=== PATIENT | female | born 1955 | race Caucasian/White ===

== ENCOUNTER 2018-02-16 10:04 | Emergency (ER) | payer OTHER ==
[2018-02-16] MEDS: HYDROCODONE/APAP (10/325) TAB PO (10:23)
[2018-02-16] MEDS ORDERED: ONDANSETRON 4 MG INJ (10:38)
[2018-02-16] MEDS: ONDANSETRON 4 MG INJ IV ×2 (10:41→16:01)
[2018-02-16] MEDS: morphine 4 MG/ML VIAL IV ×2 (10:41→16:01)
[2018-02-16 10:56] LABS: ADD MAN DIFF? NO
[2018-02-16 10:58] LABS: WHITE BLOOD COUNT 6.5 10^3/ul (4.8-10.8)
[2018-02-16 10:58] LABS: BASOPHIL # 0.1 10^3/ul (0.0-0.1); BASOPHILS % 1.1 % (0.0-2.0); EOSINOPHILS # 0.8 10^3/ul (0.0-0.5); EOSINOPHILS % 11.5 % (0.0-7.0); HEMATOCRIT 24.5 % (37.0-47.0); HEMOGLOBIN 8.1 g/dl (12.0-16.0); LYMPHOCYTES # 1.8 10^3/ul (0.8-2.9); LYMPHOCYTES % 27.9 % (15.0-51.0); MEAN CORPUSCULAR HEMOGLOBIN 30.1 pg (29.0-33.0); MEAN CORPUSCULAR HGB CONC 33.1 g/dl (32.0-37.0); MEAN CORPUSCULAR VOLUME 91.1 fl (82.0-101.0); MONOCYTE # 0.4 10^3/ul (0.3-0.9); MONOCYTES % 5.4 % (0.0-11.0); NEUTROPHIL # 3.5 10^3/ul (1.6-7.5); NEUTROPHILS % 53.5 % (39.0-77.0); PLATELET COUNT 164 10^3/UL (140-415); RED BLOOD COUNT 2.69 10^6/ul (4.20-5.40); RED CELL DISTRIBUTION WIDTH 13.3 % (11.5-14.5)
[2018-02-16] MEDS: HYDROmorphONE 0.5 MG/0.5 ML SYG IV (11:46)
[2018-02-16 11:47] LABS: ANION GAP 14 (8-16); BLOOD UREA NITROGEN 37 mg/dl (7-20); CALCIUM 8.8 mg/dl (8.4-10.2); CARBON DIOXIDE 19 mmol/L (21-31); CHLORIDE 111 mmol/L (97-110); CREATININE 2.46 mg/dl (0.44-1.00); GLUCOSE 169 mg/dl (70-220); POTASSIUM 4.6 mmol/L (3.5-5.1); SODIUM 139 mmol/L (135-144)
[2018-02-16 12:22] LABS: ADD UMIC YES; UR AMORPHOUS CRYSTAL FEW /HPF (NONE SEEN); UR ASCORBIC ACID NEGATIVE (NEGATIVE); UR BACTERIA MODERATE /HPF (NONE SEEN); UR BILIRUBIN (Dip) NEGATIVE (NEGATIVE); UR BLOOD (Dip) NEGATIVE (NEGATIVE); UR CLARITY SLIGHTLY CLOUDY (CLEAR); UR COLOR YELLOW (YELLOW); UR GLUCOSE (Dip) 1+ mg/dL (NEGATIVE); UR KETONES (Dip) NEGATIVE (NEGATIVE); UR LEUKOCYTE ESTERASE (Dip) NEGATIVE Leu/ul (NEGATIVE); UR NITRITE (Dip) NEGATIVE (NEGATIVE); UR RBC 2 /HPF (0-5); UR SPECIFIC GRAVITY (Dip) 1.011 (1.003-1.030); UR TOTAL PROTEIN (Dip) 2+ mg/dl (NEGATIVE); UR UROBILINOGEN (Dip) NEGATIVE (NEGATIVE); UR WBC 21 /HPF (0-5)
[2018-02-16] MEDS: SOD CHLORIDE 0.9% 500 ML IV (13:35)
[2018-02-16] MEDS: CEFTRIAXONE 1 GM/50 ML (PMX) 50 ML IVPB (13:35)
== END 2018-02-16 16:04 | disposition short-term general hospital (02) ==
LOC: E/R 10:04
DX: S42.91XA Fracture of right shoulder girdle, part unspecified, initial encounter for closed fracture (principal); N39.0 Urinary tract infection, site not specified; I10 Essential (primary) hypertension; E11.9 Type 2 diabetes mellitus without complications; F17.210 Nicotine dependence, cigarettes, uncomplicated; W18.39XA Other fall on same level, initial encounter; Y92.9 Unspecified place or not applicable; Z79.4 Long term (current) use of insulin
CPT/HCPCS: 51702; 73030-RT; 73562; 80048; 81001; 85025; 87086; 93005; 96374; 96375; 96376; 99285-25

== ENCOUNTER 2018-03-15 21:35 | Emergency (ER) | payer OTHER ==
[2018-03-16] LABS: ADD MAN DIFF? NO
[2018-03-16 00:02] LABS: BASOPHILS % 0.6 % (0.0-2.0); EOSINOPHILS # 0.4 10^3/ul (0.0-0.5); EOSINOPHILS % 6.2 % (0.0-7.0); HEMATOCRIT 23.2 % (37.0-47.0); HEMOGLOBIN 7.7 g/dl (12.0-16.0); LYMPHOCYTES # 1.8 10^3/ul (0.8-2.9); LYMPHOCYTES % 27.4 % (15.0-51.0); MEAN CORPUSCULAR HEMOGLOBIN 30.3 pg (29.0-33.0); MEAN CORPUSCULAR HGB CONC 33.2 g/dl (32.0-37.0); MEAN CORPUSCULAR VOLUME 91.3 fl (82.0-101.0); MEAN PLATELET VOLUME 10.1 fl (7.4-10.4); MONOCYTE # 0.5 10^3/ul (0.3-0.9); MONOCYTES % 8.1 % (0.0-11.0); NEUTROPHIL # 3.8 10^3/ul (1.6-7.5); NEUTROPHILS % 57.2 % (39.0-77.0); PLATELET COUNT 163 10^3/UL (140-415); RED BLOOD COUNT 2.54 10^6/ul (4.20-5.40); RED CELL DISTRIBUTION WIDTH 14.2 % (11.5-14.5)
[2018-03-16 00:02] LABS: WHITE BLOOD COUNT 6.6 10^3/ul (4.8-10.8)
[2018-03-16 00:08] LABS: ALANINE AMINOTRANSFERASE 17 IU/L (13-69); ALBUMIN 3.3 g/dl (3.3-4.9); ALBUMIN/GLOBULIN RATIO 0.91; ALKALINE PHOSPHATASE 181 IU/L (42-121); ANION GAP 15 (8-16); ASPARTATE AMINO TRANSFERASE 15 IU/L (15-46); BILIRUBIN,INDIRECT 0.3 mg/dl (0-1.1); BILIRUBIN,TOTAL 0.3 mg/dl (0.2-1.3); BLOOD UREA NITROGEN 43 mg/dl (7-20); CALCIUM 8.5 mg/dl (8.4-10.2); CARBON DIOXIDE 23 mmol/L (21-31); CHLORIDE 104 mmol/L (97-110); CREATININE 2.98 mg/dl (0.44-1.00); GLUCOSE 215 mg/dl (70-220); LIPASE 115 U/L (23-300); POTASSIUM 5.2 mmol/L (3.5-5.1); SODIUM 137 mmol/L (135-144); TOTAL PROTEIN 6.9 g/dl (6.1-8.1)
[2018-03-16 00:25] LABS: TROPONIN-I < 0.012 ng/ml (0.000-0.120)
[2018-03-16] MEDS: SOD CHLORIDE 0.9% 1,000 ML IV (02:02)
== END 2018-03-16 08:42 | disposition short-term general hospital (02) ==
LOC: E/R 21:35
DX: E66.01 Morbid (severe) obesity due to excess calories (principal); S42.201A Unspecified fracture of upper end of right humerus, initial encounter for closed fracture; D64.9 Anemia, unspecified; N17.9 Acute kidney failure, unspecified; E86.0 Dehydration; I10 Essential (primary) hypertension; I50.9 Heart failure, unspecified; E11.9 Type 2 diabetes mellitus without complications; F17.210 Nicotine dependence, cigarettes, uncomplicated; X58.XXXA Exposure to other specified factors, initial encounter; Y92.9 Unspecified place or not applicable; Z79.4 Long term (current) use of insulin
CPT/HCPCS: 36415; 71045; 73030-RT; 80053; 83690; 84484; 85025; 86850; 86900; 86901; 93005; 99285-25

== ENCOUNTER 2018-09-28 18:33 | Observation (INO) | payer OTHER ==
[2018-09-28 20:48] LABS: ABNORMAL IP MESSAGE 1; HEMATOCRIT 21.7 % (37.0-47.0); MEAN CORPUSCULAR HEMOGLOBIN 30.2 pg (29.0-33.0); MEAN CORPUSCULAR HGB CONC 31.3 g/dl (32.0-37.0); MEAN CORPUSCULAR VOLUME 96.4 fl (82.0-101.0); MEAN PLATELET VOLUME 9.3 fl (7.4-10.4); PLATELET COUNT 140 10^3/UL (140-415); RED BLOOD COUNT 2.25 10^6/ul (4.20-5.40); RED CELL DISTRIBUTION WIDTH 13.9 % (11.5-14.5)
[2018-09-28 20:48] LABS: WHITE BLOOD COUNT 6.7 10^3/ul (4.8-10.8)
[2018-09-28 20:50] LABS: ADD MAN DIFF? YES; HEMOGLOBIN 6.8 g/dl (12.0-16.0); POSITIVE DIFF @See below
[2018-09-28 20:51] LABS: PATH REVIEW? YES
[2018-09-28] MEDS: SOD CHLORIDE 0.9% 0 ML IV (20:52)
[2018-09-28 21:09] LABS: ALANINE AMINOTRANSFERASE 6 IU/L (13-69); ALBUMIN 3.8 g/dl (3.3-4.9); ALKALINE PHOSPHATASE 101 IU/L (42-121); ANION GAP 7 (5-13); ASPARTATE AMINO TRANSFERASE 20 IU/L (15-46); BLOOD UREA NITROGEN 81 mg/dl (7-20); CALCIUM 9.2 mg/dl (8.4-10.2); CARBON DIOXIDE 18 mmol/L (21-31); CHLORIDE 112 mmol/L (97-110); CREATININE 4.14 mg/dl (0.44-1.00); Estimated GFR 11 mL/min (>60); GLUCOSE 161 mg/dl (70-220); POTASSIUM 5.7 mmol/L (3.5-5.1); SODIUM 137 mmol/L (135-144)
[2018-09-28 21:12] LABS: ACETAMINOPHEN < 10.0 ug/ml (10.0-30.0); SALICYLATE < 1.0 mg/dl (5.0-30.0)
[2018-09-28 21:31] LABS: TROPONIN-I 0.944 ng/ml (0.000-0.120)
[2018-09-28 21:55] LABS: FREE THYROXINE INDEX (Calc) 2.16 ug/ml (0.65-3.89); T3 UPTAKE 28.8 % (23.5-40.5); T4 (THYROXINE) 7.5 ug/dl (5.5-11.0)
[2018-09-28 22:37] LABS: BASOPHILS % (M) 1 % (0-2); EOSINOPHILS % (M) 4 % (0-7); LYMPHOCYTES #M 1.4 10^3/ul (0.8-2.9); LYMPHOCYTES % (M) 21 % (15-51); MICROCYTOSIS 1+ (0-0); MONOCYTE #M 0.2 10^3/ul (0.3-0.9); MONOCYTES % (M) 3 % (0-11); PLATELET ESTIMATE NORMAL; SEGMENTED NEUTROPHILS (M) % 71 % (39-77); SMUDGE%M 22 % (0-0)
[2018-09-28] MEDS ORDERED: ALPRAZOLAM 0.25 MG TAB PO (23:30)
[2018-09-28] MEDS ORDERED: NACL 0.9% 3 ML SYG IV (23:30)
[2018-09-28] MEDS ORDERED: BISACODYL (EC) 5 MG TAB PO (23:30)
[2018-09-28] MEDS ORDERED: MAGNESIUM HYDROXIDE 30ML CUP PO (23:30)
[2018-09-29] MEDS: FAMOTIDINE 20 MG TAB PO ×2 (00:07→09:48)
[2018-09-29] MEDS: ASPIRIN 81 MG TAB PO (00:07)
[2018-09-29 00:22] LABS: D-DIMER 5900.56 ng/ml (<460)
[2018-09-29 05:01] LABS: WHITE BLOOD COUNT 6.1 10^3/ul (4.8-10.8)
[2018-09-29 05:01] LABS: ABNORMAL IP MESSAGE 1; HEMATOCRIT 21.1 % (37.0-47.0); MEAN CORPUSCULAR HEMOGLOBIN 30.3 pg (29.0-33.0); MEAN CORPUSCULAR HGB CONC 31.8 g/dl (32.0-37.0); MEAN CORPUSCULAR VOLUME 95.5 fl (82.0-101.0); MEAN PLATELET VOLUME 10.3 fl (7.4-10.4); PLATELET COUNT 129 10^3/UL (140-415); RED BLOOD COUNT 2.21 10^6/ul (4.20-5.40); RED CELL DISTRIBUTION WIDTH 13.9 % (11.5-14.5)
[2018-09-29 05:04] LABS: POSITIVE DIFF @See below
[2018-09-29 05:05] LABS: ADD MAN DIFF? YES
[2018-09-29 05:09] LABS: HEMOGLOBIN 6.7 g/dl (12.0-16.0)
[2018-09-29 05:34] LABS: ANION GAP 12 (5-13); BLOOD UREA NITROGEN 82 mg/dl (7-20); CALCIUM 8.6 mg/dl (8.4-10.2); CARBON DIOXIDE 15 mmol/L (21-31); CHLORIDE 114 mmol/L (97-110); CREATININE 3.64 mg/dl (0.44-1.00); Estimated GFR 13 mL/min (>60); GLUCOSE 88 mg/dl (70-220); POTASSIUM 5.2 mmol/L (3.5-5.1); SODIUM 141 mmol/L (135-144)
[2018-09-29 05:41] LABS: ADD MAN DIFF? NO
[2018-09-29 05:46] LABS: WHITE BLOOD COUNT 6.7 10^3/ul (4.8-10.8)
[2018-09-29 05:46] LABS: ABNORMAL IP MESSAGE 1; BASOPHILS % 0.6 % (0.0-2.0); EOSINOPHILS # 0.5 10^3/ul (0.0-0.5); EOSINOPHILS % 6.8 % (0.0-7.0); HEMATOCRIT 20.9 % (37.0-47.0); LYMPHOCYTES # 2.5 10^3/ul (0.8-2.9); LYMPHOCYTES % 37.1 % (15.0-51.0); MEAN CORPUSCULAR HEMOGLOBIN 30.9 pg (29.0-33.0); MEAN CORPUSCULAR HGB CONC 32.5 g/dl (32.0-37.0); MEAN PLATELET VOLUME 9.8 fl (7.4-10.4); MONOCYTE # 0.5 10^3/ul (0.3-0.9); MONOCYTES % 7.4 % (0.0-11.0); NEUTROPHIL # 3.2 10^3/ul (1.6-7.5); NEUTROPHILS % 47.8 % (39.0-77.0); PLATELET COUNT 134 10^3/UL (140-415); RED CELL DISTRIBUTION WIDTH 13.9 % (11.5-14.5)
[2018-09-29 05:50] LABS: HEMOGLOBIN 6.8 g/dl (12.0-16.0); POSITIVE DIFF @See below
[2018-09-29 08:06] LABS: ANISOCYTOSIS 2+ (0-0); BAND NEUTROPHILS % (M) 1 % (0-4); BASOPHILS % (M) 1 % (0-2); EOSINOPHILS % (M) 4 % (0-7); HYPOCHROMASIA 1+ (0-0); LYMPHOCYTES #M 2.8 10^3/ul (0.8-2.9); LYMPHOCYTES % (M) 47 % (15-51); MICROCYTOSIS 1+ (0-0); MONOCYTE #M 0.1 10^3/ul (0.3-0.9); MONOCYTES % (M) 2 % (0-11); PLATELET ESTIMATE NORMAL; POIKILOCYTOSIS 1+ (0-0); POLYCHROMASIA 1+ (0-0); RBC MORPHOLOGY COMMENT @See below; SEG NEUT #M 2.7 10^3/ul (1.6-7.5); SEGMENTED NEUTROPHILS (M) % 45 % (39-77); SMUDGE%M 1 % (0-0); WBC MORPHOLOGY COMMENT @See below
[2018-09-29 09:24] LABS: PATH REVIEW DK
[2018-09-29] MEDS: SOD CHLORIDE 0.9% 1,000 ML IV (09:47)
[2018-09-29] MEDS: ESCITALOPRAM 10 MG TAB PO (09:48)
[2018-09-29] MEDS: ENOXAPARIN 40 MG/0.4 ML SYG SC (09:58)
[2018-09-29 11:05] LABS: ADD UMIC YES; UR AMORPHOUS CRYSTAL MODERATE /HPF (NONE SEEN); UR ASCORBIC ACID NEGATIVE (NEGATIVE); UR BILIRUBIN (Dip) NEGATIVE (NEGATIVE); UR BLOOD (Dip) 1+ mg/dL (NEGATIVE); UR CLARITY CLEAR (CLEAR); UR COLOR YELLOW (YELLOW); UR GLUCOSE (Dip) NEGATIVE (NEGATIVE); UR KETONES (Dip) NEGATIVE (NEGATIVE); UR LEUKOCYTE ESTERASE (Dip) NEGATIVE Leu/ul (NEGATIVE); UR NITRITE (Dip) NEGATIVE (NEGATIVE); UR RBC 0 /HPF (0-5); UR SPECIFIC GRAVITY (Dip) 1.011 (1.003-1.030); UR SQUAMOUS EPITHELIAL CELL FEW /HPF (FEW); UR TOTAL PROTEIN (Dip) 2+ mg/dl (NEGATIVE); UR UROBILINOGEN (Dip) NEGATIVE (NEGATIVE); UR WBC 0 /HPF (0-5)
[2018-09-29 11:16] LABS: SODIUM,URINE RANDOM 86 mmol/L (30-90)
[2018-09-29 11:42] LABS: IRON 88 ug/dl (35-150)
[2018-09-29 11:52] LABS: % IRON SATURATION 43 % SAT (22-52); TOTAL IRON BINDING CAPACITY 206 ug/dl (241-421)
[2018-09-29] MEDS ORDERED: GLUCAGON 1 MG INJ IM (12:00)
[2018-09-29] MEDS ORDERED: DEXTROSE 50% 50 ML SYRINGE IV ×2 (12:00)
[2018-09-29] MEDS ORDERED: GLUCOSE GEL 15 GRAM TUBE BUCCAL (12:00)
[2018-09-29] MEDS ORDERED: GLUCOSE GEL 15 GRAM TUBE PO ×2 (12:00)
[2018-09-29] MEDS: INSULIN ASPART [NOVOLOG] 3 ML PEN SC ×3 (12:00→21:00)
[2018-09-29 14:05] LABS: PROTEIN/CREAT RATIO 3.48 RATIO
[2018-09-29 15:49] LABS: IMMEDIATE SPIN CROSSMATCH 1 3
[2018-09-29 17:22] LABS: FOLATE > 20.0 ng/ml (2.8-20.0)
[2018-09-29] MEDS ORDERED: NON-FORMULARY/PATIENT OWN MED (Simvastatin* (Zocor*) 40 MG) PO (21:00)
[2018-09-29] MEDS: ACETAMINOPHEN 500 MG TAB PO (21:30)
[2018-09-29] MEDS: hydrALAzine 20 MG INJ IV (21:31)
[2018-09-29] MEDS: DIPHENHYDRAMINE 50 MG INJ IV (21:31)
[2018-09-29] MEDS: EPOETIN 10000 UNITS/ML (NON ESRD/NON ONCOLOGY) SC (22:34)
[2018-09-29] MEDS: CITRIC ACID/NA CITRATE 30 ML CUP PO (22:35)
[2018-09-29] MEDS: ATORVASTATIN 20 MG TAB PO (22:35)
[2018-09-30] MEDS: ACETAMINOPHEN 325 MG TAB PO (04:45)
[2018-09-30 06:25] LABS: ADD MAN DIFF? NO; BASOPHILS % 0.5 % (0.0-2.0); EOSINOPHILS # 0.4 10^3/ul (0.0-0.5); EOSINOPHILS % 7.7 % (0.0-7.0); HEMATOCRIT 25.6 % (37.0-47.0); HEMOGLOBIN 8.3 g/dl (12.0-16.0); LYMPHOCYTES # 2.1 10^3/ul (0.8-2.9); LYMPHOCYTES % 37.7 % (15.0-51.0); MEAN CORPUSCULAR HEMOGLOBIN 29.6 pg (29.0-33.0); MEAN CORPUSCULAR HGB CONC 32.4 g/dl (32.0-37.0); MEAN CORPUSCULAR VOLUME 91.4 fl (82.0-101.0); MEAN PLATELET VOLUME 10.7 fl (7.4-10.4); MONOCYTE # 0.4 10^3/ul (0.3-0.9); MONOCYTES % 6.4 % (0.0-11.0); NEUTROPHIL # 2.6 10^3/ul (1.6-7.5); NEUTROPHILS % 47.3 % (39.0-77.0); PLATELET COUNT 128 10^3/UL (140-415); RED CELL DISTRIBUTION WIDTH 14.8 % (11.5-14.5)
[2018-09-30 06:25] LABS: WHITE BLOOD COUNT 5.6 10^3/ul (4.8-10.8)
[2018-09-30 06:32] LABS: ANION GAP 7 (5-13); BLOOD UREA NITROGEN 74 mg/dl (7-20); CALCIUM 8.4 mg/dl (8.4-10.2); CARBON DIOXIDE 16 mmol/L (21-31); CHLORIDE 113 mmol/L (97-110); CREATININE 3.36 mg/dl (0.44-1.00); Estimated GFR 14 mL/min (>60); GLUCOSE 78 mg/dl (70-220); POTASSIUM 5.4 mmol/L (3.5-5.1); SODIUM 136 mmol/L (135-144)
[2018-09-30 06:44] LABS: URIC ACID 6.6 mg/dl (3.1-7.9)
[2018-09-30 06:44] LABS: CREATINE KINASE 39 IU/L (23-200)
[2018-09-30] MEDS: INSULIN ASPART [NOVOLOG] 3 ML PEN SC ×3 (07:52→17:24)
[2018-09-30] MEDS: CITRIC ACID/NA CITRATE 30 ML CUP PO (07:58)
[2018-09-30] MEDS: FAMOTIDINE 20 MG TAB PO (07:58)
[2018-09-30] MEDS: DOCUSATE SODIUM 100 MG CAP PO (07:58)
[2018-09-30] MEDS: ESCITALOPRAM 10 MG TAB PO (07:58)
[2018-09-30] MEDS: ENOXAPARIN 40 MG/0.4 ML SYG SC (08:08)
[2018-09-30] MEDS: GABAPENTIN 100 MG CAP PO ×2 (09:23→12:24)
[2018-09-30] MEDS: NA POLYST SULFON 15 GM/60 ML BTL PO (09:23)
[2018-09-30] MEDS: hydrALAzine 20 MG INJ IV (16:11)
[2018-09-30] MEDS: METOPROLOL 50 MG TAB PO (17:43)
== END 2018-09-30 18:28 ==
LOC: E/R 18:33 → 6WM 23:31
PROVIDERS: Pediatrics
DX: E86.0 Dehydration (principal); E87.5 Hyperkalemia; I12.9 Hypertensive chronic kidney disease with stage 1 through stage 4 chronic kidney disease, or unspecified chronic kidney disease; N18.9 Chronic kidney disease, unspecified; E11.21 Type 2 diabetes mellitus with diabetic nephropathy; E11.42 Type 2 diabetes mellitus with diabetic polyneuropathy; D64.9 Anemia, unspecified; E66.01 Morbid (severe) obesity due to excess calories; Z68.42 Body mass index [BMI] 45.0-49.9, adult
CPT/HCPCS: 36415; 36430; 71045; 73020-50; 74176; 76775; 80048; 80053; 80307; 81001; 81003; 82550; 82570; 82607; 82746; 82962; 83036; 83540; 84300; 84436; 84443; 84479; 84484; 84560; 85025; 85378; 86850; 86900; 86901; 86920; 89190; 93005; 93306; 99285-25; G0378